=== PATIENT | female | born 2000 | race Caucasian/White ===

== ENCOUNTER 2018-06-04 17:29 | Outpatient (RCR) | payer MEDICAID, SELFPAY ==
--- NOTE | 2018-06-04 19:44 | HP.PTEVAL_ITS ---
Patient's Visit Information TATUM BOTELLO is a 18 year old F referred to Physical Therapy by Gerson Young MD with a diagnosis of BILATERAL PLANTAR FASCITIS,ACHILLES TENDONITIS. Date of Evaluation: 06/04/18 Physical Therapist: Solomon Locke PT, - Visit Plan Frequency: 2x /Week Duration: 4 Weeks Plan: modlaities- US,STM TOPHER/PLANTAR FASCIA STICK ,STRETCHING CALF/PLANTAR FASCIA - Subjective Subjective: This 18 y/o female presents to physical therapy with bilateral plantar fascitis achilles tendonitis. Patient symptoms started in December but January is where pain became more intense. Symptoms located planter calcaneous to posterior achilles Gastrocosoleous.Symptoms worse with standing and walking,inactivity with sitting/driving ,and AM.Symptoms better with nothing. Denioes paratghesia/tingling. Symptoms affects QOL and job demands . Patient sleeping good. Denies parathesia/tingling.Patient does better shoes for work. SOCAIL: student [employer]. VOCATION: [employer] - Pain Bilateral Ankle Pain Intensity (Out of 10): 5 Pain Intensity Range: 10 - Objective POSTURE: pes planus. GAIT:mild antalgic gait pes planus bess out. PALPATION: unremarkable. NEURO: intact ,denies parathesia/tingling. AROM: Dorsiflexion 0 degrees,planterflexion 65 vdegrees,inversion 40 degrees,eversion 5 degrees. MMT: anterior tibials 4/5,posterior tibials ,perneous,G-S 4/5. FLEXABLITY: mod tight G-Soleous - Goals Goal 1:: Patient to be Independant with HEP Goal Time Frame: 4-6 Weeks Goal 2:: Patient decrease pain in calf and heel by 60 % or greater to improve function with walking and standing. Goal Time Frame: 4-6 Weeks Goal 3:: Patient to improve flexablity bilateral gastrosoleus for DF by 5 degrees or greater to improve function. Goal Time Frame: 4-6 Weeks Goal 4:: Patient to be able to perform job demands and ADL'S with min limiations with less pain Goal Time Frame: 4-6 Weeks Goal 5:: Patient to improve LFES score by 10 points to improve function with walking and standing Goal Time Frame: 4-6 Weeks - Rehabilitation Potential Physical Therapy Diagnosis: This patient has bilateral plantarfastis and achilles tendonitis with pes planus,tight G-S ,pain in morning and inativity ,standing on feet all day at work with these impairments patient has. calcaneous/calf pain thus benifit from skilled PT Rehabilitation Potential: Good - Anticipated Interventions Patient/Client Instruction: Educate patient on: Condition, Plan of Care For the Purpose of:: To decrease pain, To increase ROM, To improve nutrient delivery to tissue, To increase oxygenation perfusion, To improve muscle performance and motor function, To increase tolerance to activity/condition/position, To improve ability of physical actions for home/community/work/leisure, To improve health of tissue, To decrease soft tissue restriction, To increase flexibility/ROM, To improve ability to perform tasks related to life management Therapeutic Exercise to Include: Strength training, Flexibilty training, Active ROM Comment: CALF/PLANTAR FASCIA For the Purpose of:: To decrease pain, To increase ROM, To improve muscle performance and motor function, To increase tolerance to activity/condition/position, To improve ability of physical actions for home/community/work/leisure, To improve health of tissue, To decrease soft tissue restriction, To increase flexibility/ROM, To improve ability to perform tasks related to life management TENS: Yes IF ES: Yes Cryotherapy (ice pack, ice massage): Yes Thermo therapy (hot pack): Yes Ultrasound (thermal/non thermal): Yes For the Purpose of:: To decrease pain, To decrease swelling/inflammation, To increase ROM, To improve nutrient delivery to tissue, To increase oxygenation perfusion, To improve health of tissue, To decrease soft tissue restriction, To improve ability to perform tasks related to life management Thank you for the opportunity to evaluate your patient. For Medicare and Medicare HMO plans, please review the plan of care and approve it. It will need to be FAXED BACK to us at [phone] for Medicare purposes. Please let me know if there are questions or concerns regarding this plan of care. Physician Signature: Date:
--- NOTE | 2018-08-22 14:18 | HP.PTDCNRP_ITS ---
HP - Discharge Summary (1) - Patient Information TATUM BOTELLO was seen in my office for initial evaluation on 06/04/18. The following Plan of Care was established for this patient: Initial Frequency: 2x /Week Initial Duration: 4 Weeks - Anticipated Interventions Patient/Client Instruction: Educate patient on: Condition, Plan of Care For the Purpose of:: To decrease pain, To increase ROM, To improve nutrient deli very to tissue, To increase oxygenation perfusion, To improve muscle performance and motor function, To increase tolerance to activity/condition/position, To improve ability of physical actions for home/community/work/leisure, To improve health of tissue, To decrease soft tissue restriction, To increase flexibility/ROM, To improve ability to perform tasks related to life management Therapeutic Exercise to Include: Strength training, Flexibilty training, Active ROM For the Purpose of:: To decrease pain, To increase ROM, To improve muscle performance and motor function, To increase tolerance to activity/condition/position, To improve ability of physical actions for home/community/work/leisure, To improve health of tissue, To decrease soft tis anabel restriction, To increase flexibility/ROM, To improve ability to perform tasks related to life management TENS: Yes IF ES: Yes Cryotherapy (ice pack, ice massage): Yes Thermo therapy (hot pack): Yes Ultrasound (thermal/non thermal): Yes For the Purpose of:: To decrease pain, To decrease swelling/inflammation, To increase ROM, To improve nutrient delivery to tissue, To increase oxygenation perfusion, To improve health of tissue, To decrease soft tissue restriction, To improve ability to perform tasks related to life management This patient was last seen in our office . Pertinent comments regarding their Physical therapy will appear below: Patient was seen for Intial PT Evaluation for plantar fascitis. At this point I will be discontinuing this patient from physical therapy. I would be happy to see this patient again in the future if found appropriate by the physician. Thank you! Solomon Locke, PT, Cert MDT, OCS
== END 2018-06-04 19:00 | disposition home or self-care (01) ==
LOC: PT 17:29
PROVIDERS: Family Provider Family Medicine; PCP Family Medicine; Referring Provider Family Medicine; Visit Provider Family Medicine
DX: M72.2 Plantar fascial fibromatosis (principal); M76.61 Achilles tendinitis, right leg; M76.62 Achilles tendinitis, left leg
CPT/HCPCS: 97035; 97161

== ENCOUNTER 2018-06-29 09:13 | Emergency (ER) | payer MEDICAID, SELFPAY ==
[2018-06-29 09:15] VITALS: BP 167/101; PULSE 96; RESP 18; TEMP 36.6; BMI 53.8
--- NOTE | 2018-06-29 09:26 | CT_ITS ---
STUDY: CT ABDOMEN AND PELVIS WITHOUT CONTRAST REASON FOR EXAM: Female, 18 years old. Left flank pain RADIATION DOSAGE (If Supplied By Facility): CTDIvol = ( 24.18 ) mGy, DLP = ( 1310.83 ) mGycm TECHNIQUE: Transaxial images were obtained from the dome of the diaphragm to the symphysis pubis without oral contrast, and without intravenous contrast. Sagittal and coronal images were reconstructed. Individualized dose optimization techniques were used for this CT. COMPARISON: None. FINDINGS: Body wall soft tissues: No acute process. Osseous structures: Mild lumbar degenerative disc disease at L5-S1 without apparent stenosis. Slight scoliosis. Inferior chest: No acute process. Hepatobiliary: Hepatomegaly, craniocaudal right liver 20 cm. There may be mild hepatic steatosis. Normal gallbladder and biliary tree. Pancreas: Mild atrophy. Spleen: Normal. Adrenal glands: Normal. Urogenital: Normal kidneys, with no retained calculi. There is very slight ectasia of the left ureter without hydronephrosis. Very slight induration of the fat surrounding portions of the ureter. Due to a tiny calculus within the ureterovesical junction. The calculus measures approximately 2 x 3 mm. Normal right collecting system and ureter. Normal urinary bladder, and uterus. The uterus is anteverted and contains an IUD that appears to be appropriately positioned within the fundal endometrial cavity. Unremarkable ovaries and adnexa with no cul-de-sac free fluid. Pelvic floor and sidewalls and retroperitoneum: No mass or adenopathy. Vasculature: No acute process. Stomach: No acute process. Small bowel and mesentery: No acute process. Large bowel: Normal appendix. Normal large bowel and rectum. Free fluid or free air: None. CT/Abdomen/Pelvis without Cont IMPRESSION: Acute passage of a small calculus positioned at the left ureterovesical junction, measuring about 3 x 2 mm, contributing to mild left hydroureter. There are no retained calculi within the kidneys. Electronically Signed: Mello Oates, at 11:28 EST Tel , Service support ,
--- NOTE | 2018-06-29 09:37 | ED.VISSUMM ---
- ER Visit Summary Date of Service: 06/29/18 Chief Complaint: Flank pain History of Present Illness: The patient is a 18 F who presents emergency department with 1 hour of a sudden onset sharp stabbing pain left flank. Minimal radiation to the front. She tells me she has a history of kidney stones has never passed one has never had surgery. She has no urologist. She denies any urinary frequency dysuria or hematuria. She denies any allergies or prescription medications. Physical Examination: Afebrile vital signs are stable Gen: Well-nourished well-developed Head: Normocephalic atraumatic Eyes: Perrl EOMI ENT: TMs clear no rhinorrhea moist mucous membranes Neck: Supple no lymphadenopathy no JVD nontender CVS: Regular rate rhythm no murmurs normal S1-S2 Respiratory: No distress clear to auscultation bilaterally chest nontender Abdomen: Soft nontender nondistended normal bowel sounds no masses Back: Mild left CVA tenderness Extremity: Nontender no edema Skin: Normal color no rash Neuro: alert orientated ?3 CN II-XII intact normal strength sensation reflexes gait cerebellar Psych: Normal affect normal mood Test Results: Normal white blood cell count. Normal creatinine. Urinalysis with 200 red blood cells. test negative. CT abdomen pelvis demonstrated by 3 x 2 mm calculus in the bladder with some mild ureter Emergency Department Course and Treatment: She received Toradol and fluids and Zofran. She will be discharged home with support urology as she has never seen one. Impression: 1. Left 3 x 2 mm kidney stone 2. Renal colic This note was generated with [employer]uv[employer] dictation software. It may contain incorrect words, spelling, and punctuation that were not noted in review of the chart prior to signing ED Disposition - Plan for ED Patient: Disposition: Home or Assisted Living Chief Complaint: Flank Pain Instructions: ED Stone Renal Passed Prescriptions: Hydrocodone Bitart/Apap 5-325 [[place] 5MG-325MG] 1 tab PO Q6H PRN PRN 3 Days #12 tab PRN Reason: Pain Referrals: Srinath Pena MD [STAFF PHYSICIAN] - (call to schedule an appointment)
[2018-06-29 10:07] LABS: Absolute Lymphocyte Count 2.06 X10^3/ul (0.83-4.51); Absolute Neutrophil Count 4.2 X10^3/uL (2.0-7.7); Basophil# 0.02 X10^3/uL; Basophil% 0.3 % (0-1); Eosinophil# 0.35 X10^3/uL; Hematocrit 39.2 % (37-47); Hemoglobin 12.6 g/dl (12.0-15.0); Lymphocyte # 2.06 X10^3/ul (4.0); Lymphocyte % 29.6 % (19-41); Mean Corp Hgb Conc 32.1 g/gl (32-36); Mean Corpuscular Hgb 26.6 pg (27.0-32.0); Mean Corpuscular Volume 82.9 fL (81-99); Mean Platelet Vol. 10.5 fl (6.2-12.0); Monocyte# 0.36 X10^3/uL; Monocyte% 5.2 % (0-10); Neutrophil # 4.16 X10^3/uL (2.7-7.7); Neutrophil % 59.6 % (47-70); Platelet Count 292 K/mm3 (150-450); RBC Distribution Width CV 13.6 % (11.6-14.6); RBC Distribution Width SD 40.4 fl (35.1-43.9); Red Blood Count 4.73 M/mm3 (4.2-5.4)
[2018-06-29] MEDS: Ketorolac 30 MG/ML Syringe IV (10:09)
[2018-06-29] MEDS: 0.9% Normal Saline 1,000 ML 250 ML IV (10:09)
[2018-06-29] MEDS: Ondansetron 4 MG/2 ML Vial IV (10:09)
[2018-06-29 10:10] LABS: POSITIVE COUNT NO; POSITIVE DIFFERENTIAL NO; POSITIVE MORPHOLOGY NO
[2018-06-29 10:20] LABS: Anion Gap 9 (5-15); BUN 12 mg/dL (7-18); BUN/Creat Ratio 16.7 RATIO (10-20); Calcium,Total 8.7 mg/dL (8.5-10.1); Chloride 108 mmol/L (98-107); Creatinine, Serum 0.72 mg/dL (0.55-1.02); EST Glomerular Filtration Rate 110 mL/min (>60); Est Glom Filt Rate - Afr Amer 133 mL/min (>60); Estimated Creatinine Clearance 116.68 ml/min; Glucose 107 mg/dL (74-106); Potassium 4.2 mmol/L (3.5-5.1); Sodium Level 142 mmol/L (136-145)
[2018-06-29 10:50] LABS: Color, Urine Yellow (Yellow); Glucose, Dipstick Normal (Normal); Ketone-Dipstick Negative (Negative); Leukocyte Esterase-Dipstick 25 /ul (Negative); Nitrite-Dipstick Negative (Negative); Occult Blood-Urine 250 /ul (Negative); Protein-Dipstick 30 mg/dl (Negative); Urine Bilirubin Dipstick Negative (Negative); Urine Clarity Sl. Cloudy (Clear); Urine Urobilinogen Normal (Normal)
[2018-06-29 10:53] LABS: Internal QC Validated? YES +Cl - CLEAR BKGD; Pregnancy, Urine Negative Negative
[2018-06-29 11:10] LABS: Bacteria 1+ /hpf (None Seen); Mucous, Urine 2+ /hpf (<or=2+); Red Blood Cells-Urine 50-100 SEEN /hpf (0-5); Squamous Epithelial Cells - UA 0-5 SEEN /hpf (5-10); White Blood Cells 0-5 SEEN /hpf (0-5)
[2018-06-29 11:16] VITALS: RESP 15
== END 2018-06-29 16:39 | disposition home or self-care (01) ==
PROVIDERS: Emergency Provider Emergency Medicine; Family Provider Family Medicine; PCP Family Medicine
DX: N20.2 Calculus of kidney with calculus of ureter (principal); N21.0 Calculus in bladder; E66.9 Obesity, unspecified; Z87.442 Personal history of urinary calculi
CPT/HCPCS: 74176; 80048; 81001; 81025; 85025; 96360; 96361; 99283; J7030; A4216; J2405